=== PATIENT | male | born 1955 | race Caucasian/White ===

== ENCOUNTER 2021-08-08 09:40 | Emergency (ER) | payer OTHER, BC ==
[2021-08-08 09:45] VITALS: RESP 18
--- NOTE | 2021-08-08 10:32 | XR ---
EXAMINATION TYPE: XR ankle complete RT DATE OF EXAM: 08/08/2021 CLINICAL HISTORY: Pain. TECHNIQUE: Frontal, lateral and oblique images of the right ankle are obtained. COMPARISON: None. FINDINGS: There is no acute fracture/dislocation evident in the right ankle. The ankle mortise appe ars within normal limits. The overlying soft tissue appears unremarkable. IMPRESSION: Unremarkable study.
--- NOTE | 2021-08-08 10:44 | ED ---
Lower Extremity Injury HPI - General Chief Complaint: Extremity Injury, Lower Stated Complaint: Rt foot pain Time Seen by Provider: 08/08/21 09:47 Source: patient, RN notes reviewed Mode of arrival: ambulatory Limitations: no limitations - History of Present Illness Initial Comments: Patient is a 65-year-old male that presents to the emergency department complaining of right ankle pain. He notes that he does have a history of gout and does take his medication as prescribed. Patient notes that he is unsure of if he might have mildly injured his ankle over the past several days. He notes that he woke up this morning he was minimally swollen. Patient otherwise well- appearing in no apparent distress. He denied any weakness numbness tingling sev ere pain. He denied chest pain first breath headache nausea vomiting diarrhea constipation fever fatigue chills. - Related Data Allergies Allergy/AdvReac Type Severity Reaction Status Date / Time No Known Allergies Allergy Verified 08/08/21 09:45 Review of Systems ROS Statement: Those systems with pertinent positive or pertinent negative responses have been documented in the HPI. ROS Other: All systems not noted in ROS Statement are negative. Past Medical History Additional Past Medical History / Comment(s): gout History of Any Multi-Drug Resistant Organisms: None Reported Past Surgical History: No Surgical Hx Reported Past Psychological History: No Psychological Hx Reported Smoking Status: Former smoker Past Alcohol Use History: Occasional Past Drug Use History: None Reported General Exam Limitations: no limitations General appearance: alert, in no apparent distress Head exam: Present: atraumatic, normocephalic, normal inspection Eye exam: Present: normal appearance, PERRL, EOMI. Absent: scleral icterus, conjunctival injection, periorbital swelling ENT exam: Present: normal exam, mucous membranes moist Respiratory exam: Present: normal lung sounds bilaterally. Absent: respiratory distress, wheezes, rales, rhonchi, stridor Cardiovascular Exam: Present: regular rate, normal rhythm, normal heart sounds. Absent: systolic murmur, diastolic murmur, rubs, gallop, clicks Extremities exam: Present: normal inspection, full ROM, normal capillary refill. Absent: tenderness, pedal edema, joint swelling, calf tenderness Right Ankle exam: Present: normal inspection, full ROM, tenderness (Anterior aspect), swelling (Minimal) Neurological exam: Present: alert, oriented X3 Psychiatric exam: Present: normal affect, normal mood Skin exam: Present: warm, dry, intact, normal color. Absent: rash Course Vital Signs 08/08/21 09:41 Temperature 97.9 F Pulse Rate 77 Respiratory 18 Rate Blood Pressure 156/91 O2 Sat by Pulse 99 Oximetry Medical Decision Making - Medical Decision Making 65-year-old male complaining of right ankle pain, unknown history of injury or trauma. X-ray ordered. X-ray shows no acute fractures or dislocations. Patient most likely has a mild ankle sprain. Patient was informed to take his indomethacin gout medication just in case it is an early flareup. Case discussed with Dr. Becerra, patient discharge home. - Radiology Data Radiology results: report reviewed, image reviewed X-ray right ankle: Unremarkable study. Disposition Clinical Impression: Right ankle injury Disposition: HOME SELF-CARE Condition: Stable Instructions (If sedation given, give patient instructions): Ankle Sprain (ED) Additional Instructions: Please return to the Emergency Department if symptoms worsen or any other concerns. Follow-up with primary care 1-2 days. Continue taking all medications as prescribed. Is patient prescribed a controlled substance at d/c from ED?: No Referrals: Xiang Dickey MD [Primary Care Provider] - 1-2 days Time of Disposition: 10:44
[2021-08-08 11:20] VITALS: BP 138/70; PULSE 78; TEMP 98.1
== END 2021-08-08 11:08 | disposition home or self-care (01) ==
LOC: EC 09:40
DX: S99.911A Unspecified injury of right ankle, initial encounter (principal); Z87.891 Personal history of nicotine dependence; X58.XXXA Exposure to other specified factors, initial encounter
CPT/HCPCS: 99283

== ENCOUNTER → 2021-08-11 | Outpatient (CLI) | payer OTHER, BC ==
--- NOTE | 2021-08-11 08:51 | CTL ---
Addendum: Small diaphragmatic hernia posterior left aspect containing fat on sagittal image 101
== END | disposition home or self-care (01) ==
LOC: RADCTMAIN 06:49
PROVIDERS: ATTEND Internal Medicine
DX: Z12.2 Encounter for screening for malignant neoplasm of respiratory organs (principal); Z87.891 Personal history of nicotine dependence; K44.9 Diaphragmatic hernia without obstruction or gangrene
CPT/HCPCS: 71271

== ENCOUNTER → 2021-08-18 | Outpatient (CLI) | payer OTHER, BC ==
[2021-08-18 10:58] LABS: Basophils # (A) 0.07 X 10*3/uL (0.00-0.10); Basophils % (A) 1.1 %; Eosinophils # (A) 0.21 X 10*3/uL (0.04-0.35); Eosinophils % (A) 3.4 %; HCT 46.8 % (39.6-50.0); HGB 14.8 g/dL (13.0-17.0); Lymphocytes # (A) 1.63 X 10*3/uL (0.90-5.00); Lymphocytes % (A) 26.5 %; MCH 29.4 pg (27.0-32.0); MCHC 31.6 g/dL (32.0-37.0); Mean Platelet Volume 12.4 fL (9.5-12.2); Monocytes # (A) 0.82 X 10*3/uL (0.20-1.00); Monocytes % (A) 13.3 %; Neutrophils % (A) 55.4 %; Platelet Count 185 X 10*3/uL (140-440); RBC 5.03 X 10*6/uL (4.40-5.60); RDW 12.8 % (11.5-14.5); WBC 6.15 X 10*3/uL (4.50-10.00)
[2021-08-18 11:59] LABS: ALT 10 U/L (10-49); AST 19 U/L (14-35); African American GFR (CKD) 96.7 (60.0-200.0); Albumin 4.3 g/dL (3.8-4.9); Albumin/Globulin Ratio 1.56 (1.60-3.17); Alkaline Phosphatase 70 U/L (41-126); BUN/Creat Ratio 11.17 Ratio (12.00-20.00); Blood Urea Nitrogen 10.7 mg/dL (9.0-27.0); Calcium 9.4 mg/dL (8.7-10.3); Carbon Dioxide 25.4 mmol/L (20.0-27.5); Chloride 105 mmol/L (96-109); Chol/HDL Ratio 3.01 Ratio; Globulin 2.7 g/dL (1.6-3.3); Glucose 87 mg/dL (70-110); LDL Cholesterol,Calculated 80.3 mg/dL (0.0-131.0); Non-African American GFR(CKD) 83.4 (60.0-200.0); Potassium 4.1 mmol/L (3.5-5.5); Sodium 142 mmol/L (135-145); Uric Acid 7.5 mg/dL (3.7-8.7)
== END | disposition home or self-care (01) ==
LOC: LABWHC1 07:09
PROVIDERS: ATTEND Internal Medicine
DX: I10 Essential (primary) hypertension (principal); Z12.5 Encounter for screening for malignant neoplasm of prostate; Q61.9 Cystic kidney disease, unspecified
CPT/HCPCS: 80061; 80053; 84443; 84550; 85025; 36415; G0103

== ENCOUNTER → 2021-09-02 | Outpatient (CLI) | payer OTHER, BC ==
--- NOTE | 2021-09-02 13:20 | US ---
EXAMINATION TYPE: US kidneys/renal and bladder DATE OF EXAM: 09/02/2021 COMPARISON: NONE CLINICAL HISTORY: 65-year-old male Q61.9 Cystic kidney disease. Patient states left kidney is nonfunc tional from TECHNIQUE: Multiple sonographic images of the kidneys and bladder are obtained. FINDINGS: EXAM MEASUREMENTS: Right Kidney: 14.9 x 6.3 x 5.9 cm Left Kidney: 13.1 x 5.3 x 6.5 cm Estimated Right Kidney: A couple small cysts are present, largest at the upper pole measuring 1.3 cm. Echogenic focus at the upper pole measures 5 mm. No hydronephrosis. Left Kidney: Normal kidney not seen due to multiple cysts seen. Largest lower pole = 11.5 x 8.1 x 7. 8 cm Bladder: Distended, anechoic IMPRESSION: 1. Right kidney: No hydronephrosis. A couple small cysts measuring up to 1.3 cm and a nonobstructive 5 mm right renal calculus. 2. Left kidney: Diffusely replaced by multiple cysts, largest measuring 11.5 cm.
== END | disposition home or self-care (01) ==
LOC: RADUSWWP 08:48
PROVIDERS: ATTEND Internal Medicine
DX: Q61.9 Cystic kidney disease, unspecified (principal)
CPT/HCPCS: 76770

== ENCOUNTER → 2021-09-02 | Outpatient (CLI) | payer OTHER, BC ==
--- NOTE | 2021-09-02 13:25 | XR ---
EXAMINATION TYPE: XR hand complete LT DATE OF EXAM: 09/02/2021 COMPARISON: NONE HISTORY: 65-year-old male S62.92XA, left hand fracture, redness and swelling to the metacarpals for 5 days. TECHNIQUE: 3 views FINDINGS: Scattered mild degenerative spurring throughout the IP joints of the fingers and also at the first CM C joint. Small corticated bone fragments, possible ossicles measuring up to 6 mm interposed at the ul nocarpal joint. Pronounced dorsal soft tissue swelling. No acute fracture, subluxation or dislocation seen. IMPRESSION: Pronounced dorsal soft tissue swelling. Scattered mild osteoarthritic changes. No acute osseous abnor mality seen.
== END | disposition home or self-care (01) ==
LOC: RADXRMAIN 09:26
PROVIDERS: ATTEND Internal Medicine
DX: S62.92XA Unspecified fracture of left hand, initial encounter for closed fracture (principal); X58.XXXA Exposure to other specified factors, initial encounter

== ENCOUNTER 2021-12-17 08:40 | Emergency (ER) | payer MEDICARE, BC ==
[2021-12-17 08:59] VITALS: RESP 18; TEMP 97
[2021-12-17] MEDS ORDERED: SODIUM CHLORIDE 0.9% 500 ML 500 ML IV STA (09:11)
--- NOTE | 2021-12-17 09:24 | ED ---
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 He denies any chest pain, dizziness or shortness of breath. Patient does have a history of A. fib, hypertension and one functional kidney. Severity scale (1-10): 0 Associated Symptoms: denies other symptoms - Related Data Home Medications Medication Instructions Recorded Confirmed Baclofen [Lioresal] 10 mg PO BID PRN 12/17/21 12/17/21 Metoprolol Succinate [Toprol XL] 50 mg PO DAILY 12/17/21 12/17/21 Rivaroxaban [Xarelto] 20 mg PO DAILY 12/17/21 12/17/21 amLODIPine BESYLATE/BENAZEPRIL 1 cap PO DAILY 12/17/21 12/17/21 [Lotrel 10-20 MG] traMADol HCL 50 mg PO BID PRN 12/17/21 12/17/21 Allergies Allergy/AdvReac Type Severity Reaction Status Date / Time No Known Allergies Allergy Verified 12/17/21 09:54 Review of Systems ROS Statement: Those systems with pertinent positive or pertinent negative responses have been documented in the HPI. ROS Other: All systems not noted in ROS Statement are negative. Past Medical History Past Medical History: Atrial Fibrillation, Hypertension, Renal Disease Additional Past Medical History / Comment(s): gout History of Any Multi-Drug Resistant Organisms: None Reported Past Surgical History: No Surgical Hx Reported, Orthopedic Surgery Past Psychological History: No Psychological Hx Reported Smoking Status: Former smoker Past Alcohol Use History: Occasional Past Drug Use History: None Reported General Exam Limitations: no limitations General appearance: alert, in no apparent distress Head exam: Present: atraumatic, normocephalic, normal inspection Eye exam: Present: normal appearance. Absent: scleral icterus, conjunctival injection ENT exam: Present: normal exam, normal oropharynx, mucous membranes moist Respiratory exam: Present: normal lung sounds bilaterally. Absent: respiratory distress, wheezes, rales, rhonchi, stridor, chest wall tenderness, accessory muscle use, decreased breath sounds Cardiovascular Exam: Present: regular rate, irregular rhythm. Absent: JVD GI/Abdominal exam: Present: soft. Absent: distended, tenderness Extremities exam: Absent: pedal edema Neurological exam: Present: alert, oriented X3, normal gait Psychiatric exam: Present: normal affect, normal mood Skin exam: Present: warm, dry, normal color. Absent: cyanosis, diaphoretic Course Vital Signs 12/17/21 12/17/21 12/17/21 08:54 11:02 11:03 Temperature 97 F L Pulse Rate 82 73 75 Respiratory 18 18 Rate Blood Pressure 164/90 162/87 O2 Sat by Pulse 100 98 Oximetry 12/17/21 12/17/21 11:15 12:20 Temperature Pulse Rate 90 88 Respiratory 18 Rate Blood Pressure 134/76 O2 Sat by Pulse 98 Oximetry - Reevaluation(s) Reevaluation #1: 12/17/21 11:39 I did speak with Dr[address] Barnett who recommended patient be given 10 g of Lokelma and stop Lotrel and have labs repeated tomorrow morning. Patient does not need to be admitted. Time: 11:39 EKG Findings - EKG Results: EKG shows: atrial fibrillation (Atrial fibrillation with a ventricular rate of 70, QRS 0.116, QTC 0.444; peak T waves are noted.) Medical Decision Making - Medical Decision Making Patient sent by Dr. Barnett, nephrology for potassium level of 6.6. Today his potassium is 6.0. He was given medications in the emergency room and Dr. Barnett was notified. She recommended patient also be given Lokelma and can be discharged home and have repeat labs drawn tomorrow morning. Patient has been urinating in the emergency room. He was directed to follow-up with Dr Barnett in the office next week. Strict return parameters were discussed with the patient to return to the emergency room with any new or concerning symptoms including dizziness, weakness, or chest pain. Patient is agreeable to this plan of care. Case discussed with Dr. Suggs. Discharged with stable vital signs. - Lab Data Result diagrams: 12/17/21 09:30 12/17/21 09:30 Lab Results 12/17/21 12/17/21 12/17/21 Range/Units 09:30 09:30 09:30 WBC 9.0 (3.8-10.6) k/uL RBC 5.48 (4.30-5.90) m/uL Hgb 17.3 (13.0-17.5) gm/dL Hct 50.7 (39.0-53.0) % MCV 92.5 (80.0-100.0) fL MCH 31.5 (25.0-35.0) pg MCHC 34.0 (31.0-37.0) g/dL RDW 13.3 (11.5-15.5) % Plt Count 205 (150-450) k/uL MPV 8.5 Neutrophils % 74 % Lymphocytes % 16 % Monocytes % 5 % Eosinophils % 1 % Basophils % 1 % Neutrophils # 6.7 (1.3-7.7) k/uL Lymphocytes # 1.5 (1.0-4.8) k/uL Monocytes # 0.5 (0-1.0) k/uL Eosinophils # 0.1 (0-0.7) k/uL Basophils # 0.1 (0-0.2) k/uL PT 14.2 H (9.0-12.0) sec INR 1.4 H (<1.2) APTT 38.6 H (22.0-30.0) sec Sodium 135 L (137-145) mmol/L Potassium 6.0 H (3.5-5.1) mmol/L Chloride 98 (98-107) mmol/L Carbon Dioxide 20 L (22-30) mmol/L Anion Gap 17 mmol/L BUN 16 (9-20) mg/dL Creatinine 1.13 (0.66-1.25) mg/dL Est GFR (CKD-EPI)AfAm 79 (>60 ml/min/1.73 sqM) Est GFR (CKD-EPI)NonAf 68 (>60 ml/min/1.73 sqM) Glucose 88 (74-99) mg/dL Calcium 9.7 (8.4-10.2) mg/dL Magnesium 2.1 (1.6-2.3) mg/dL Total Bilirubin 1.8 H (0.2-1.3) mg/dL AST 34 (17-59) U/L ALT 17 (4-49) U/L Alkaline Phosphatase 80 (38-126) U/L Troponin I (0.000-0.034) ng/mL Total Protein 8.9 H (6.3-8.2) g/dL Albumin 5.0 (3.5-5.0) g/dL 12/17/21 Range/Units 09:30 WBC (3.8-10.6) k/uL RBC (4.30-5.90) m/uL Hgb (13.0-17.5) gm/dL Hct (39.0-53.0) % MCV (80.0-100.0) fL MCH (25.0-35.0) pg MCHC (31.0-37.0) g/dL RDW (11.5-15.5) % Plt Count (150-450) k/uL MPV Neutrophils % % Lymphocytes % % Monocytes % % Eosinophils % % Basophils % % Neutrophils # (1.3-7.7) k/uL Lymphocytes # (1.0-4.8) k/uL Monocytes # (0-1.0) k/uL Eosinophils # (0-0.7) k/uL Basophils # (0-0.2) k/uL PT (9.0-12.0) sec INR (<1.2) APTT (22.0-30.0) sec Sodium (137-145) mmol/L Potassium (3.5-5.1) mmol/L Chloride (98-107) mmol/L Carbon Dioxide (22-30) mmol/L Anion Gap mmol/L BUN (9-20) mg/dL Creatinine (0.66-1.25) mg/dL Est GFR (CKD-EPI)AfAm (>60 ml/min/1.73 sqM) Est GFR (CKD-EPI)NonAf (>60 ml/min/1.73 sqM) Glucose (74-99) mg/dL Calcium (8.4-10.2) mg/dL Magnesium (1.6-2.3) mg/dL Total Bilirubin (0.2-1.3) mg/dL AST (17-59) U/L ALT (4-49) U/L Alkaline Phosphatase (38-126) U/L Troponin I <0.012 (0.000-0.034) ng/mL Total Protein (6.3-8.2) g/dL Albumin (3.5-5.0) g/dL Disposition Clinical Impression: Hyperkalemia Disposition: HOME SELF-CARE Condition: Good Instructions (If sedation given, give patient instructions): Hyperkalemia (ED) Additional Instructions: Stop taking your Lotrel (amlodipine/benazepril). Have labs redrawn tomorrow, Tuesday12/18/21. Follow-up with Dr. Barnett in the office next week. Return to the emergency room with any new or concerning symptoms including chest pain, weakness or dizziness. Is patient prescribed a controlled substance at d/c from ED?: No Referrals: Xiang Dickey MD [Primary Care Provider] - 1-2 days Bianca Barnett MD [STAFF PHYSICIAN] - 1-2 days Time of Disposition: 11:55 Decision Date: 12/17/21 Decision Time: 10:58
[2021-12-17] MEDS ORDERED: DEXTROSE 50% SYRINGE 50 ML IVP ONE (09:43)
[2021-12-17] MEDS ORDERED: INSULIN REGULAR 100 UNIT/ML VIAL (IV) IV ONE (09:43)
[2021-12-17] MEDS ORDERED: ALBUTEROL NEB (CONC) 2.5 MG/0.5 ML INHALATION ONE (09:43)
[2021-12-17] MEDS ORDERED: CALCIUM GLUCONATE IN NACL 1 GM in SALINE 1 100ML.BAG IVPB ONE (09:43)
[2021-12-17 09:48] LABS: Basophils # (A) 0.1 k/uL (0-0.2); Basophils % (A) 1 %; Eosinophils # (A) 0.1 k/uL (0-0.7); Eosinophils % (A) 1 %; HCT 50.7 % (39.0-53.0); HGB 17.3 gm/dL (13.0-17.5); Lymphocytes # (A) 1.5 k/uL (1.0-4.8); Lymphocytes % (A) 16 %; MCH 31.5 pg (25.0-35.0); MCV 92.5 fL (80.0-100.0); Mean Platelet Volume 8.5; Monocytes # (A) 0.5 k/uL (0-1.0); Monocytes % (A) 5 %; Neutrophils # (A) 6.7 k/uL (1.3-7.7); Neutrophils % (A) 74 %; Platelet Count 205 k/uL (150-450); RBC 5.48 m/uL (4.30-5.90); RDW 13.3 % (11.5-15.5)
[2021-12-17 10:03] LABS: INR 1.4 (<1.2); Partial Thromboplastin Time 38.6 sec (22.0-30.0); Prothrombin Time 14.2 sec (9.0-12.0)
[2021-12-17 10:38] LABS: Calcium 9.7 mg/dL (8.4-10.2); Magnesium 2.1 mg/dL (1.6-2.3); Total Bilirubin 1.8 mg/dL (0.2-1.3); Total Protein 8.9 g/dL (6.3-8.2)
[2021-12-17] MEDS ORDERED: NALOXONE 0.4 MG/ML 1 ML VIAL IV PRN (11:01)
[2021-12-17] MEDS ORDERED: ACETAMINOPHEN TAB 325 MG TAB PO PRN (11:01)
--- NOTE | 2021-12-17 11:18 | P.HPIM ---
History of Present Illness Chief Complaint: instructed by my industrial radiographer Patient is a 66-year-old male with a past medical history significant for atrial fibrillation on anticoagulation, essential hypertension that presents to the hospital after being referred by his industrial radiographer for hyperkalemia. His potassium was found to be 6.6 in the emergency department currently 6.0 hyperkalemia cocktail was administered. EKG was reviewed and also have T-wave changes and IV calcium gluconate was administered. Patient was admitted for close monitoring until he gets evaluated by his industrial radiographer. He denies any symptomatology clinic chest pain, shortness of breath or palpitations. He is slightly frustrated with the admission. Past Medical History Past Medical History: Atrial Fibrillation, Hypertension, Renal Disease Additional Past Medical History / Comment(s): gout History of Any Multi-Drug Resistant Organisms: None Reported Past Surgical History: No Surgical Hx Reported, Orthopedic Surgery Past Psychological History: No Psychological Hx Reported Smoking Status: Former smoker Past Alcohol Use History: Occasional Past Drug Use History: None Reported Medications and Allergies Home Medications Medication Instructions Recorded Confirmed Type Baclofen [Lioresal] 10 mg PO BID PRN 12/17/21 12/17/21 History Metoprolol Succinate [Toprol XL] 50 mg PO DAILY 12/17/21 12/17/21 History Rivaroxaban [Xarelto] 20 mg PO DAILY 12/17/21 12/17/21 History amLODIPine BESYLATE/BENAZEPRIL 1 cap PO DAILY 12/17/21 12/17/21 History [Lotrel 10-20 MG] traMADol HCL 50 mg PO BID PRN 12/17/21 12/17/21 History Allergies Allergy/AdvReac Type Severity Reaction Status Date / Time No Known Allergies Allergy Verified 12/17/21 09:54 Physical Exam Vitals: Vital Signs Temp Pulse Resp BP Pulse Ox 12/17/21 11:03 75 12/17/21 11:02 73 18 162/87 98 12/17/21 08:54 97 F L 82 18 164/90 100 Intake and Output 12/16/21 12/17/21 12/17/21 22:59 06:59 14:59 Other: Weight 83.461 kg Gen. patient is awake alert oriented 3 slightly frustrated Cardiac normal S1/S2 irregularly irregular Respiratory no wheezing or rhonchi appreciated Abdomen soft, nontender Extremity no pitting edema Results CBC & Chem 7: 12/17/21 09:30 12/17/21 09:30 Labs: Abnormal Lab Results - Last 24 Hours (Table) 12/17/21 12/17/21 Range/Units 09:30 09:30 PT 14.2 H (9.0-12.0) sec INR 1.4 H (<1.2) APTT 38.6 H (22.0-30.0) sec Sodium 135 L (137-145) mmol/L Potassium 6.0 H (3.5-5.1) mmol/L Carbon Dioxide 20 L (22-30) mmol/L Total Bilirubin 1.8 H (0.2-1.3) mg/dL Total Protein 8.9 H (6.3-8.2) g/dL Assessment and Plan Assessment: Assessment: #1 hyperkalemia #2 atrial fibrillation on anticoagulation #3 essential hypertension Plan: -Admit to medicine for close monitoring -Repeat potassium and 1 hour after hyperkalemia cocktail administered in the ER -Repeat EKG- nephrology consulted. -Current EKG reviewed showing peaked T waves, calcium gluconate administered -Due to prophylaxis heparin
--- NOTE | 2021-12-17 11:19 | XR ---
EXAMINATION TYPE: XR chest 2V DATE OF EXAM: 12/17/2021 COMPARISON: CT 08/11/2021 HISTORY: S pain TECHNIQUE: Frontal and lateral views of the chest are obtained. FINDINGS: There is no focal air space opacity, pleural effusion, or pneumothorax seen. The cardiac silhouette size is within normal limits. Calcified nodule present in the left lower lobe noted incid entally. Prominent lung volumes are consistent with underlying COPD. There are coronary artery calcif ications present. Aorta is dense. There are overlying leads. There is a spinal curvature. The osseous structures are intact. IMPRESSION: No acute cardiopulmonary process.
[2021-12-17] MEDS ORDERED: SODIUM ZIRCONIUM CYCLOSILICATE 10 GM PACKET PO ONE (12:15)
[2021-12-17 12:23] VITALS: BP 134/76; PULSE 88
[2021-12-18] MEDS ORDERED: NON FORMULARY DRUG (Amlodipine Besylate/Benazepril [Lotrel 10-20 Mg] 1 EACH Capsule) PO SCH (09:00)
[2021-12-18] MEDS ORDERED: METOPROLOL SUCCINATE (ER) 50 MG TAB.ER.24H PO SCH (09:00)
[2021-12-18] MEDS ORDERED: RIVAROXABAN 20 MG TAB PO SCH (09:00)
== END 2021-12-17 12:21 | disposition home or self-care (01) ==
LOC: EC 08:40
DX: E87.5 Hyperkalemia (principal); I10 Essential (primary) hypertension; Z87.891 Personal history of nicotine dependence
CPT/HCPCS: 99284; 96374; 96375; 36415; 94640; 93005; 80053; 83735; 84484; 85025; 85610; 85730; 71046; J0610

== ENCOUNTER → 2022-12-08 | Outpatient (CLI) | payer MEDICARE, BC ==
--- NOTE | 2022-12-08 08:53 | CTL ---
EXAMINATION TYPE: CT Low Dose Lung DATE OF EXAM: 12/08/2022 7:49 AM CLINICAL INDICATION:Male, 67 years old with history of Z87.891 PERSONAL HISTORY OF NICOTINE DEPENDENC E; Personal history of nicotine dependence , history of tobacco use. COMPARISON: 08/11/2021 TECHNIQUE: Multiple axial non-contrast scans were obtained from approximately the lung apices through the upper abdomen. Coronal and sagittal reformatted images were obtained. Low dose technique was uti lized. CT DLP: 112.9 mGycm, Automated exposure control for dose reduction was used. CT Contrast: Contrast used: None Oral contrast used: None FINDINGS: ======== Lack of intravenous contrast and low dose technique limits the evaluation of the vascular and soft ti ssue structures. LUNGS: No evidence of pulmonary fibrosis. No evidence of focal consolidation, pneumothorax or pleural effusion. Fat-containing posterior right aqueduct hernia. Nodules: RUL: None. RML: None. RLL: None. NAVDEEP: None. LLL: Left lower lobe calcified centrally granuloma. Additional calcified granuloma series 8. AIRWAY: Patent and unremarkable. HEART: The heart is mildly enlarged for size. There is mild coronary artery calcifications. Aortic va lve calcifications are present. MEDIASTINUM: No gross evidence of adenopathy. VASCULATURE: No aortic aneurysm. Atherosclerosis of the arterial vasculature. MUSCULOSKELETAL: Mild disc degeneration changes are present throughout the thoracolumbar spine. SOFT TISSUES/LYMPH NODES: Mild gynecomastia changes. LOWER NECK: No significant findings. UPPER ABDOMEN: Left renal cystic changes similar prior. IMPRESSION: 1. No clinically significant pulmonary nodules. CT LUNG RAD AND CT CHEST RECOMMENDATION: Lung-Rad 2 Benign Appearance or Behavior: Continue annual sc reening with LDCT in 12 months. S Modifier (other clinically significant findings): None Recommend smoking cessation (if current smoker), or continuation of smoking cessation (if prior smoke r). Annual screening for lung cancer with low-dose computed tomography is recommended in adults ages 55 to 77 years who have a 30 pack-year smoking history and currently smoke or have quit within the pa st 15 years. Screening should be discontinued once a person has not smoked for 15 years or develops a health problem that substantially limits life expectancy or the ability or willingness to have curat clare lung surgery. Lung rads 2021 [email or web address]
== END | disposition home or self-care (01) ==
LOC: RADCTMAIN 07:30
PROVIDERS: ATTEND Internal Medicine
DX: Z12.2 Encounter for screening for malignant neoplasm of respiratory organs (principal); Z87.891 Personal history of nicotine dependence
CPT/HCPCS: 71271

== ENCOUNTER → 2022-12-15 | Outpatient (CLI) | payer MEDICARE, BC ==
--- NOTE | 2022-12-15 11:06 | MR ---
EXAMINATION TYPE: MR brain wo/w con DATE OF EXAM: 12/15/2022 COMPARISON: None HISTORY: Family hx stroke, Headache TECHNIQUE: Multiplanar, multisequence images of the brain and brainstem is performed without and with IV contras t, utilizing 9 mL intravenous Gadavist . FINDINGS: Diffusion weighted images demonstrate no evidence of a recent infarct or other diffusion ab normality. There is no extra-axial fluid collection or significant white matter signal abnormality. The ventricular system and cisternal spaces are consistent with mild degenerative change and there a re numerous focal areas of abnormal signal seen scattered throughout the white matter of bilateral ce rebral hemisphere.. The brain volume is age appropriate. Midline structures demonstrate normal morphology. The craniocervical junction appears within normal limits. Post contrast images demonstrate no abnormal enhancement. The dural venous sinuses appear pa tent. Changes of chronic sinusitis and the globes are intact. IMPRESSION: 1. Mild degenerative and mild to moderate nonspecific white matter changes most typical of remote whi te matter ischemia
== END | disposition home or self-care (01) ==
LOC: RADMRIMAIN 09:29
PROVIDERS: ATTEND Internal Medicine
DX: G93.89 Other specified disorders of brain (principal); R90.82 White matter disease, unspecified; R51.9 Headache, unspecified
CPT/HCPCS: 70553; A9585

== ENCOUNTER → 2022-12-24 | Outpatient (CLI) | payer MEDICARE, BC ==
--- NOTE | 2022-12-24 09:57 | US ---
EXAMINATION TYPE: US venous doppler duplex LE RT DATE OF EXAM: 12/24/2022 9:18 AM COMPARISON: NONE CLINICAL HISTORY: M79.89 RT LEG SWELLING. right leg edema. patient on blood thinner, AFIB SIDE PERFORMED: right TECHNIQUE: The lower extremity deep venous system is examined utilizing real time linear array sonog leida with graded compression, doppler sonography and color-flow sonography. VESSELS IMAGED: Common Femoral Vein Deep Femoral Vein Greater Saphenous Vein * Femoral Vein Popliteal Vein Small Saphenous Vein * Proximal Calf Veins (* superficial vessels) Right Leg: No evidence of DVT IMPRESSION: Grayscale, color doppler, spectral doppler imaging performed of the deep veins of the lo wer extremities. There is normal flow, compressibility, vascular waveforms.
== END | disposition home or self-care (01) ==
LOC: RADUSWWP 09:16
PROVIDERS: ATTEND Internal Medicine
DX: I48.91 Unspecified atrial fibrillation (principal); M79.89 Other specified soft tissue disorders; R22.41 Localized swelling, mass and lump, right lower limb

== ENCOUNTER → 2023-02-01 | Outpatient (CLI) | payer MEDICARE, BC ==
--- NOTE | 2023-02-01 14:25 | P.SLEEP ---
History of Present Illness H&P Date: 02/01/23 This is a very pleasant 67-year-old male patient was coming to see me regarding possibility of him having obstructive sleep apnea. The patient is . He is in a relationship with another person at this point in time and his partner has a medical background and he has been noted to have snoring and occasional apneas at nighttime. The patient is known to have chronic atrial fibrillation and has hypertension and chronic kidney disease. He is an ex-smoker. He does not drink alcohol for the time being. He has loud snoring. He wakes up frequently in the middle of the night for urination. At times, he wakes up with dry mouth. Denies waking up choking or gasping for air. His sleep is obviously fragmented. He has no difficulties initiating sleep. He is having issues with sleep maintenance. He goes to bed around 9 PM, wakes up 3 AM in the morning, is averaging around 5 or 6 hours of sleep. His current Elsie score is at 1. He is not having any major hypersomnia or sleepiness during the day. No nighttime chest pain or shortness of breath. No nighttime palpitations. No headaches in the morning. He has been losing weight and over the past 10 years, the patient has lost approximately 20 pounds. His BP is under good control. He remains on long-term anticoagulation was also regarding his atrial fibrillation. No nighttime seizures. No grinding of the teeth. No sleepwalking. No restlessness and his lower extremities. No nighttime heartburn. No issues with memory or concentration during the day. No anxiety. No depression. Review of Systems Constitutional: Reports weight loss Eyes: denies as per HPI, denies blurred vision, denies bulging eye, denies decreased vision, denies diplopia, denies discharge, denies dry eye, denies irritation, denies itching, denies pain, denies photophobia, denies loss of peripheral vision, denies loss of vision, denies tunnel vision/blind spots Ears: deny: decreased hearing, ear discharge, earache, tinnitus Breasts: absent: as per HPI, gynecomastia Cardiovascular: Reports as per HPI, Reports irregular heart beat Respiratory: Reports as per HPI Genitourinary: Reports as per HPI Musculoskeletal: Reports as per HPI Musculoskeletal: absent: ankle pain, ankle stiffness, ankle swelling Integumentary: Reports as per HPI Neurological: Reports as per HPI Psychiatric: Reports as per HPI Endocrine: Reports as per HPI Hematologic/Lymphatic: Reports as per HPI Allergic/Immunologic: Reports as per HPI Past Medical History Past Medical History: Atrial Fibrillation, Hypertension, Renal Disease (Chronic kidney disease) Additional Past Medical History / Comment(s): gout History of Any Multi-Drug Resistant Organisms: None Reported Past Surgical History: No Surgical Hx Reported, Orthopedic Surgery (lumbar laminectomy) Past Psychological History: No Psychological Hx Reported Smoking Status: Former smoker (Patient quit smoking in 1999 and he quit smoking approximately 13 years ago. Used to smoke 1-2 packs of cigarettes prior to that.) Past Alcohol Use History: Occasional Past Drug Use History: None Reported Medications and Allergies Home Medications Medication Instructions Recorded Confirmed Type Baclofen [Lioresal] 10 mg PO BID PRN 12/17/21 12/17/21 History Metoprolol Succinate [Toprol XL] 50 mg PO DAILY 12/17/21 12/17/21 History Rivaroxaban [Xarelto] 20 mg PO DAILY 12/17/21 12/17/21 History amLODIPine BESYLATE/BENAZEPRIL 1 cap PO DAILY 12/17/21 12/17/21 History [Lotrel 10-20 MG] traMADol HCL 50 mg PO BID PRN 12/17/21 12/17/21 History Allergies Allergy/AdvReac Type Severity Reaction Status Date / Time No Known Allergies Allergy Verified 12/17/21 09:54 Physical Exam BP is 148/78, pulse is 70, respirations 16, temperature 97.1 and a pulse ox of 98% on room air oxygen. Height is 5 feet and 10 inches, weight is 203 pounds, body mass index is 29, Elsie score is at 1 and the side of the neck is 15.5 inches. The patient appeared well nourished and normally developed. Vital signs as documented. Head exam is unremarkable. No scleral icterus or corneal arcus noted. Neck is without jugular venous distension, thyromegaly, or carotid bruits. Carotid upstrokes are brisk bilaterally. Limited cognitive posterior oropharynx with a Mallampati class III. Lungs are clear to auscultation and percussion. Cardiac exam reveals the PMI to be normally sized and situated. Rhythm is irregular consistent with atrial fibrillation. First and second heart sounds normal. No murmurs, rubs or gallops. Abdominal exam reveals normal bowel sounds, no masses, no organomegaly and no aortic enlargement. Extremities are nonedematous and both femoral and pedal pulses are normal.Examination of the skin revealed no evidence of significant rashes, suspicious appearing nevi or other concerning lesions.Neurologically, the patient is awake and alert and the patient does not have any focal neurological deficit. Cranial nerves are essentially intact. Assessment and Plan Plan: Loud snoring and occasional apneas. Nevertheless, no significant daytime hypersomnia or sleepiness. The patient's aport score is at 1 Chronic atrial fibrillation Hypertension Chronic kidney disease Ex-smoker Plan Proceed with a home sleep study to evaluate this patient for sleep apnea The patient has a fragmented sleep. There may be potentially an underlying sleep apnea disorder. Nevertheless, overall functionality during the day of the well-preserved and the patient does not have any significant hypersomnia or sleepiness. Based on his sleep fragmentation, snoring, and comorbid conditions include atrial fibrillation, a home sleep study will be done to evaluate this patient for MIRANDA. Maintain regular sleep hygiene measures Maintain aggressive schedule Continue efforts to lose weight We'll continue to follow Sleep Note - Sleep Note Sleep Note: Temperature: Pulse Rate: Respiratory Rate: Blood Pressure: SpO2: Height: Weight: BMI: Neck Circumference:
== END ==
LOC: SLEEP 13:34
PROVIDERS: ATTEND Internal Medicine Critical Care Medicine
DX: G47.33 Obstructive sleep apnea (adult) (pediatric) (principal); I48.91 Unspecified atrial fibrillation; I10 Essential (primary) hypertension; N18.9 Chronic kidney disease, unspecified; Z87.891 Personal history of nicotine dependence
CPT/HCPCS: 99211

== ENCOUNTER 2023-02-10 07:13 | Emergency (ER) | payer MEDICARE, BC ==
[2023-02-10 07:26] VITALS: RESP 16; TEMP 97
[2023-02-10] MEDS ORDERED: LIDOCAINE 5% PATCH TOPICAL STA (07:38)
[2023-02-10] MEDS ORDERED: CYCLOBENZAPRINE 5 MG TAB PO STA (07:41)
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
--- NOTE | 2023-02-10 08:08 | XR ---
EXAMINATION TYPE: XR chest 2V DATE OF EXAM: 02/10/2023 7:53 AM COMPARISON: Chest radiographs from 12/17/2021. TECHNIQUE: XR chest 2V Frontal and lateral views of the chest. CLINICAL INDICATION:Male, 67 years old with history of right inferior ant rib pain; FINDINGS: Lungs/Pleura: There is no evidence of pleural effusion, focal consolidation, or pneumothorax. Pulmonary vascularity: Unremarkable. Heart/mediastinum: Cardiomediastinal silhouette is unremarkable. Musculoskeletal: No acute osseous pathology. No evidence of right inferior anterior rib fracture. Delmy luation slightly limited given overlapping soft tissues of the lower chest. IMPRESSION: No evidence of rib fracture, if there remains concern consider CT. No acute cardiopulmonary disease/process.
[2023-02-10 08:42] VITALS: BP 150/94; PULSE 66
== END 2023-02-10 08:42 | disposition home or self-care (01) ==
LOC: EC 07:13
DX: S20.211A Contusion of right front wall of thorax, initial encounter (principal); I48.91 Unspecified atrial fibrillation; I10 Essential (primary) hypertension; Z87.891 Personal history of nicotine dependence; Z79.899 Other long term (current) drug therapy; Z79.01 Long term (current) use of anticoagulants; X50.0XXA Overexertion from strenuous movement or load, initial encounter
CPT/HCPCS: 71046; 99283

== ENCOUNTER 2023-09-04 06:48 | Emergency (ER) | payer MEDICARE, BC ==
[2023-09-04 07:10] VITALS: RESP 18
--- NOTE | 2023-09-04 07:27 | ED ---
Extremity Problem HPI - General Chief complaint: Extremity Problem,Nontraumatic Stated complaint: Swelling and lump on right leg Time Seen by Provider: 09/04/23 07:09 Source: patient, RN notes reviewed Mode of arrival: ambulatory Limitations: no limitations - History of Present Illness Initial comments: This is a 67-year-old male who presents to the emergency department for right calf pain and swelling. States that when he woke up, he noticed that his right calf was swollen and there was also a lump on the calf that seemed to be painful. Denies any injuries or history of similar symptoms in the past. He does take Xarelto for atrial fibrillation. Denies any chest pain or shortness of breath. His concern concern is ruling out a blood clot. Denies any history of DVTs. - Related Data Home Medications Medication Instructions Recorded Confirmed Baclofen [Lioresal] 10 mg PO BID PRN 12/17/21 12/17/21 Metoprolol Succinate [Toprol XL] 50 mg PO DAILY 12/17/21 12/17/21 Rivaroxaban [Xarelto] 20 mg PO DAILY 12/17/21 12/17/21 amLODIPine BESYLATE/BENAZEPRIL 1 cap PO DAILY 12/17/21 12/17/21 [Lotrel 10-20 MG] traMADol HCL 50 mg PO BID PRN 12/17/21 12/17/21 Previous Rx's Medication Instructions Recorded Cyclobenzaprine [Flexeril] 5 mg PO TID PRN 7 Days #21 tablet 02/10/23 HYDROcodone/APAP 5-325MG [[place] 1 tab PO Q6HR PRN 3 Days #12 tab 02/10/23 5-325] Lidocaine 5% Patch [Lidoderm 5% 1 patch TOPICAL DAILY PRN 14 Days 02/10/23 Patch] #14 patch Allergies Allergy/AdvReac Type Severity Reaction Status Date / Time No Known Allergies Allergy Verified 02/10/23 07:26 Review of Systems ROS Statement: Those systems with pertinent positive or pertinent negative responses have been documented in the HPI. ROS Other: All systems not noted in ROS Statement are negative. Past Medical History Past Medical History: Atrial Fibrillation, Hypertension, Renal Disease Additional Past Medical History / Comment(s): gout History of Any Multi-Drug Resistant Organisms: None Reported Past Surgical History: No Surgical Hx Reported, Orthopedic Surgery Past Psychological History: No Psychological Hx Reported Smoking Status: Former smoker Past Alcohol Use History: Occasional Past Drug Use History: None Reported General Exam Limitations: no limitations General appearance: alert, in no apparent distress Head exam: Present: atraumatic, normocephalic, normal inspection Respiratory exam: Present: normal lung sounds bilaterally. Absent: respiratory distress, wheezes, rales, rhonchi, stridor Cardiovascular Exam: Present: regular rate, normal rhythm, normal heart sounds. Absent: systolic murmur, diastolic murmur, rubs, gallop, clicks Extremities exam: Present: other (There is a 2cm tender and firm area to the anterior medial aspect of the right tib/fib. No erythema or increased heat.) Psychiatric exam: Present: normal affect, normal mood Course Vital Signs 09/04/23 09/04/23 06:49 08:27 Temperature 97.8 F 97.9 F Pulse Rate 70 74 Respiratory 18 18 Rate Blood Pressure 167/101 113/90 O2 Sat by Pulse 98 98 Oximetry Medical Decision Making - Medical Decision Making This is a 67-year-old male who presents to the emergency department for right leg pain. Was pt. sent in by a medical professional or institution? @ -No Did you speak to anyone other than the patient for history? @ -No Did you review nursing and triage notes? @ -Yes, and I agree, it is accurate with regards to the patient's symptoms. Were old charts reviewed? @ -No Differential Diagnosis? @ -Differential Leg Pain: Leg fracture, leg sprain, DVT, PVD, arterial insufficiency, iliac artery aneurysm, cellulitis, compartment syndrome, tendinopathy, nerve entrapment, piri formis syndrome, osteoarthritis, rhabdomyolysis, myositis, cramping from an electrolyte imbalance, this is not meant to be an all inclusive list. EKG interpreted by me (3pts min.)? @ -Not obtained X-rays interpreted by me (1pt min.)? @ -Not obtained CT interpreted by me (1pt min.)? @ -Not obtained U/S interpreted by me (1pt. min.)? @ -Duplex US of the right lower extremity obtained. My interpretation identifies no evidence of a DVT. What testing was considered but not performed? (CT, X-rays, U/S, labs)? Why? @ -None What meds were considered but not given? Why? @ -None Did you discuss the management of the patient with other professionals? @ -No Did you reconcile home meds? @ -No Was smoking cessation discussed for >3mins.? @ -No Was critical care preformed (if so, how long)? @ -No Were there social determinants of health that impacted care today? How? (Homelessness, low income, unemployed, alcoholism, drug addiction, transportation, low edu. Level, literacy, decrease access to med. care, correction, rehab)? @ -No Was there de-escalation of care discussed even if they declined? (Discuss DNR or withdrawal of care, Hospice)? @ -No What co-morbidities impacted this encounter? (DM, HTN, Smoking, COPD, CAD, Cancer, CVA, Hep., AIDS, mental health diagnosis, sleep apnea, morbid obesity)? @ -A-fib, HTN Was patient admitted / discharged? @ -Discharged. Duplex ultrasound of the right lower extremity obtained demonstrating no evidence of a DVT. The palpable tender area noted on his leg corresponds with a thrombosed varicosity arising from the greater saphenous vein. The GSV proximal and distal to the thrombosed area is free of clot. Findings reviewed with the patient. Advised anti-inflammatories such as ibuprofen, warm compresses, and elevation of the leg. He will otherwise follow up with his primary care provider. Undiagnosed new problem with uncertain prognosis? @ -None Drug Therapy requiring intensive monitoring for toxicity (Heparin, Nitro, Insulin, Cardizem)? @ -None Were any procedures done? @ -None Diagnosis/symptom? @ -Superficial venous thrombosis Acute, or Chronic, or Acute on Chronic? @ -Acute Uncomplicated (without systemic symptoms) or Complicated (systemic symptoms)? @ -Uncomplicated Side effects of treatment? @ -None Exacerbation, Progression, or Severe Exacerbation] @ -Not applicable Poses a threat to life or bodily function? @ -No Return precautions reviewed in depth, the patient is instructed to return to the emergency department with any new, worsening, or concerning symptoms. Patient verbalized understanding. This case was discussed in detail with the attending ED physician, Dr. Lau. Presentation, findings, and treatment plan discussed in detail as well. - Radiology Data Radiology results: report reviewed, image reviewed Disposition Clinical Impression: Acute superficial venous thrombosis of right lower extremity Disposition: HOME SELF-CARE Instructions (If sedation given, give patient instructions): Superficial Thrombophlebitis (ED) Additional Instructions: Return to the emergency department with any new, worsening, or concerning symptoms. Take over the counter anti-inflammatories, apply warm compresses or use compression stockings, and elevate the leg. Follow up with your primary care provider in 1-2 days. Is patient prescribed a controlled substance at d/c from ED?: No Referrals: Xiang Dickey MD [Primary Care Provider] - 1-2 days
--- NOTE | 2023-09-04 07:58 | US ---
EXAMINATION TYPE: US venous doppler duplex LE RT DATE OF EXAM: 09/04/2023 7:48 AM COMPARISON: NONE CLINICAL INDICATION: Male, 67 years old with history of Right calf pain and swelling; Patient noticed hard, red, painful lump at the medial proximal portion on the calf last night, pt. on blood thinners for a-fib SIDE PERFORMED: Right TECHNIQUE: The lower extremity deep venous system is examined utilizing real time linear array sonog leida with graded compression, doppler sonography and color-flow sonography. VESSELS IMAGED: Common Femoral Vein Deep Femoral Vein Greater Saphenous Vein * Femoral Vein Popliteal Vein Small Saphenous Vein * Proximal Calf Veins (* superficial vessels) Right Leg: Negative for DVT, Grayscale, color doppler, spectral doppler imaging performed of the corwin p veins of the lower extremities. There is normal flow, compressibility, vascular waveforms. additional images taken at area of concern. Palpable area corresponds to a 0.8x0.5x0.7cm thrombosed v aricosity arising from the greater saphenous vein. The GSV proximal and distal to the thrombosed area is free of clot. IMPRESSION: 1. No deep vein thrombosis. 2. Thrombosed varicosity present.
[2023-09-04 08:43] VITALS: BP 113/90; PULSE 74; TEMP 97.9
== END 2023-09-04 08:28 | disposition home or self-care (01) ==
LOC: EC 06:48
DX: I82.811 Embolism and thrombosis of superficial veins of right lower extremity (principal); I10 Essential (primary) hypertension; I48.91 Unspecified atrial fibrillation; Z79.01 Long term (current) use of anticoagulants; Z79.899 Other long term (current) drug therapy; Z87.891 Personal history of nicotine dependence
CPT/HCPCS: 99283

== ENCOUNTER → 2023-11-25 | Outpatient (CLI) | payer MEDICARE, BC ==
--- NOTE | 2023-11-28 15:45 | XR ---
EXAMINATION TYPE: XR wrist complete 4 views LT, XR hand complete LT 3 views DATE OF EXAM: 11/25/2023 COMPARISON: 09/02/2021 HISTORY: 68-year-old male M25.532, left wrist pain FINDINGS: Wrist: Moderate degenerative spurring and joint space narrowing at the first CMC joint and mild at the trisc aphe joint. There is some cystic change within the ulnar proximal aspect of the lunate bone. 5 mm corticated ossi fic densities interposed at the ulnocarpal joint are unchanged. Some faint synovial calcifications al godwin the volar aspect of the wrist. There may be mild soft tissue swelling. No acute fracture, subluxation, dislocation. Hand: Mild degenerative spurring at the first MCP and IP joint. Soft tissue swelling overlying the dorsal a spect of the metacarpal heads on the lateral view. No marginal or juxta articular erosions are seen. No additional soft tissue calcifications. No acute fracture or dislocation. IMPRESSION: Wrist: 1. Mild soft tissue swelling. Some faint synovial calcifications along the volar aspect of the wrist. Correlate to exclude the possibilities of gout or CPPD. 2. Some cystic change within the lunate bone may be seen with ulnar impaction syndrome. Correlate for any chronic ulnar-sided wrist pain. 3. Corticated densities measuring up to 5 mm at the ulnar aspect of the wrist, possible sequela of ol d injury. 4. Mild to moderate osteoarthritic change at the base of the thumb. Hand: 5. Additional dorsal soft tissue swelling along the hand. Clinically correlate as to etiology. 6. Mild osteoarthritic change throughout the remaining joints of the thumb.
== END | disposition home or self-care (01) ==
LOC: RADXRMAIN 13:14
PROVIDERS: ATTEND Internal Medicine
DX: M79.89 Other specified soft tissue disorders (principal); M19.09 Primary osteoarthritis, other specified site

== ENCOUNTER → 2023-12-08 | Outpatient (CLI) | payer MEDICARE, BC ==
--- NOTE | 2023-12-14 19:29 | CTL ---
EXAMINATION TYPE: CT Low Dose Lung DATE OF EXAM: 12/08/2023 12:24 PM CLINICAL INDICATION:Male, 68 years old with history of Z12.2 lung cancer scr Z87.891 former smoker; personal hx of tobacco use. 1 pack/ day x 40 years. Quit smoking in 2013. , history of tobacco use. COMPARISON: None. TECHNIQUE: Multiple axial non-contrast scans were obtained from approximately the lung apices through the upper abdomen. Coronal and sagittal reformatted images were obtained. Low dose technique was uti lized. CT DLP: 145.3 mGycm, Automated exposure control for dose reduction was used. CT Contrast: Contrast used: None Oral contrast used: None FINDINGS: ======== Lack of intravenous contrast and low dose technique limits the evaluation of the vascular and soft ti ssue structures. LUNGS: No evidence of pulmonary fibrosis. No evidence of focal consolidation, pneumothorax or pleural effusion. Right-sided [place] fat-containing hernia. Unchanged from prior. Nodules: RUL: None. RML: None. RLL: None. NAVDEEP: None. LLL: 14 mm calcified granuloma indicating healed granulomatous disease.. AIRWAY: Patent and unremarkable. HEART: Size within normal limits. MEDIASTINUM: No gross evidence of adenopathy. VASCULATURE: No aortic aneurysm. Ectatic, measuring 39 mm. MUSCULOSKELETAL: No acute osseous abnormalities SOFT TISSUES/LYMPH NODES: Unremarkable. LOWER NECK: No significant findings. UPPER ABDOMEN: No significant findings. As above, Right-sided [place] fat-containing hernia. IMPRESSION: 1. No clinically significant pulmonary nodules. CT LUNG RAD AND CT CHEST RECOMMENDATION: Lung-Rad 1 Negative: Continue annual screening with LDCT in 12 months. S Modifier (other clinically significant findings): None Recommend smoking cessation (if current smoker), or continuation of smoking cessation (if prior smoke r). Annual screening for lung cancer with low-dose computed tomography is recommended in adults ages 55 to 77 years who have a 30 pack-year smoking history and currently smoke or have quit within the pa st 15 years. Screening should be discontinued once a person has not smoked for 15 years or develops a health problem that substantially limits life expectancy or the ability or willingness to have curat clare lung surgery. Lung rads 2021 [email or web address]
== END | disposition home or self-care (01) ==
LOC: RADCTMAIN 11:58
PROVIDERS: ATTEND Internal Medicine
DX: Z12.2 Encounter for screening for malignant neoplasm of respiratory organs (principal); Z87.891 Personal history of nicotine dependence
CPT/HCPCS: 71271

== ENCOUNTER → 2024-01-12 | Outpatient (CLI) | payer MEDICARE, BC ==
--- NOTE | 2024-01-13 07:21 | XR ---
EXAMINATION TYPE: XR chest 2V DATE OF EXAM: 01/12/2024 4:37 PM CLINICAL INDICATION:Male, 68 years old with history of R05.8 OTHER SPECIFIED COUGH; [facility] COMPARISON: Chest radiographs from 10/01/2022. TECHNIQUE: XR chest 2V Frontal and lateral views of the chest. FINDINGS: Lungs/Pleura: There is no evidence of pleural effusion, focal consolidation, or pneumothorax. Pulmonary vascularity: Unremarkable. Heart/mediastinum: Cardiomediastinal silhouette is unremarkable. Musculoskeletal: No acute osseous pathology. IMPRESSION: No acute cardiopulmonary disease/process.
== END | disposition home or self-care (01) ==
LOC: RADXRMAIN 16:14
PROVIDERS: ATTEND Internal Medicine
DX: R05.8 Other specified cough (principal)
CPT/HCPCS: 71046

== ENCOUNTER → 2024-01-26 | Outpatient (CLI) | payer MEDICARE, BC ==
--- NOTE | 2024-01-26 15:45 | XR ---
EXAMINATION TYPE: XR shoulder limited LT DATE OF EXAM: 01/26/2024 COMPARISON: NONE HISTORY: 68-year-old male M25.512 PAIN IN LEFT SHOULDER TECHNIQUE: 2 views FINDINGS: AC joint appears congruent and intact. Subacromial space is preserved. Limited 2 views with AP internal rotation and scapular Y views. No acute fracture, subluxation, dislocation is identified given this limitation. IMPRESSION: No acute osseous abnormality seen on these 2 views.
== END | disposition home or self-care (01) ==
LOC: RADXRMAIN 12:51
PROVIDERS: ATTEND Internal Medicine
DX: M25.512 Pain in left shoulder (principal)

== ENCOUNTER 2024-02-07 17:40 | Emergency (ER) | payer MEDICARE, BC ==
[2024-02-07 18:15] VITALS: RESP 18
--- NOTE | 2024-02-07 18:24 | ED ---
Recheck HPI - General Chief Complaint: Extremity Problem,Nontraumatic Stated Complaint: L Wrist Pain Time Seen by Provider: 02/07/24 17:58 Source: patient, RN notes reviewed, old records reviewed Mode of arrival: EMS Limitations: no limitations - History of Present Illness Initial Comments: This is a 68-year-old male complaining of body aches pains left wrist pain back pain knee pain coming in for evaluation regards to just not feeling well. Seen by primary care this morning and presents to the ER which is increasing body aches, patient has no acute complaints currently. He is brought in by EMS for further management MD Complaint: abnormal lab, other (Generalized pain) -: days(s) Returns Today for: persistent/worsening pain related to initial visit Symptoms Since Prior Visit: no new symptoms, worsening pain Associated Symptoms: none - Related Data Home Medications Medication Instructions Recorded Confirmed Baclofen [Lioresal] 10 mg PO BID PRN 12/17/21 12/17/21 Metoprolol Succinate [Toprol XL] 50 mg PO DAILY 12/17/21 12/17/21 Rivaroxaban [Xarelto] 20 mg PO DAILY 12/17/21 12/17/21 amLODIPine BESYLATE/BENAZEPRIL 1 cap PO DAILY 12/17/21 12/17/21 [Lotrel 10-20 MG] traMADol HCL 50 mg PO BID PRN 12/17/21 12/17/21 Previous Rx's Medication Instructions Recorded Cyclobenzaprine [Flexeril] 5 mg PO TID PRN 7 Days #21 tablet 02/10/23 HYDROcodone/APAP 5-325MG [Helotes 1 tab PO Q6HR PRN 3 Days #12 tab 02/10/23 5-325] Lidocaine 5% Patch [Lidoderm 5% 1 patch TOPICAL DAILY PRN 14 Days 02/10/23 Patch] #14 patch Ketorolac [Toradol] 10 mg PO Q8HR #15 tab 02/06/24 HYDROcodone/APAP 5-325MG [Helotes 1 tab PO Q6HR PRN #12 tab 02/07/24 5-325] Allergies Allergy/AdvReac Type Severity Reaction Status Date / Time No Known Allergies Allergy Verified 02/10/23 07:26 Review of Systems ROS Statement: Those systems with pertinent positive or pertinent negative responses have been documented in the HPI. ROS Other: All systems not noted in ROS Statement are negative. Past Medical History Past Medical History: Atrial Fibrillation, Hypertension, Renal Disease Additional Past Medical History / Comment(s): gout History of Any Multi-Drug Resistant Organisms: None Reported Past Surgical History: No Surgical Hx Reported, Orthopedic Surgery Past Psychological History: No Psychological Hx Reported Smoking Status: Former smoker Past Alcohol Use History: Occasional Past Drug Use History: None Reported General Exam Limitations: no limitations General appearance: alert, in no apparent distress Head exam: Present: atraumatic, normocephalic, normal inspection Eye exam: Present: normal appearance, PERRL, EOMI. Absent: scleral icterus, conjunctival injection, periorbital swelling ENT exam: Present: normal exam, mucous membranes moist Neck exam: Present: normal inspection. Absent: tenderness, meningismus, lymphadenopathy Respiratory exam: Present: normal lung sounds bilaterally. Absent: respiratory distress, wheezes, rales, rhonchi, stridor Cardiovascular Exam: Present: regular rate, normal rhythm, normal heart sounds. Absent: systolic murmur, diastolic murmur, rubs, gallop, clicks GI/Abdominal exam: Present: soft, normal bowel sounds. Absent: distended, tenderness, guarding, rebound, rigid Extremities exam: Present: normal inspection, full ROM, normal capillary refill. Absent: tenderness, pedal edema, joint swelling, calf tenderness Back exam: Present: normal inspection Neurological exam: Present: alert, oriented X3, CN II-XII intact Psychiatric exam: Present: normal affect, normal mood Skin exam: Present: warm, dry, intact, normal color. Absent: rash Course Vital Signs 02/07/24 02/07/24 17:42 22:32 Temperature 98.9 F Pulse Rate 106 H 86 Respiratory 18 18 Rate Blood Pressure 145/79 112/83 O2 Sat by Pulse 100 99 Oximetry - Reevaluation(s) Reevaluation #1: Medical records reviewed Reevaluation #2: Patient symptoms unchanged Reevaluation #3: Patient informed of results and questions answered Reevaluation #4: Was pt. sent in by a medical professional or institution (, PA, PROJ ENGINEER, urgent care, hospital, or fpc...) When possible be specific @ -no Did you speak to anyone other than the patient for history (EMS, parent, family, police, friend...)? What history was obtained from this source @ -no Did you review nursing and triage notes (agree or disagree)? Why? @ -agree Are old charts reviewed (outside hosp., previous admission, EMS record, old EKG, old radiological studies, urgent care reports/EKG's, fpc records)? Report findings @ -yes Differential Diagnosis (chest pain, altered mental status, abdominal pain women, abdominal pain men, vaginal bleeding, weakness, fever, dyspnea, syncope, headache, dizziness, GI bleed, back pain, seizure, CVA, palpatations, mental health, musculoskeletal)? @ -prior EKG interpreted by me (3pts min.). @ -no X-rays interpreted by me (1pt min.). @ -no CT interpreted by me (1pt min.). @ -no U/S interpreted by me (1pt. min.). @ -no What testing was considered but not performed or refused? (CT, X-rays, U/S, labs)? Why? @ -none What meds were considered but not given or refused? Why? @ -none Did you discuss the management of the patient with other professionals (professionals i.e. , PA, PROJ ENGINEER, lab, RT, psych nurse, social organization professor, cardiopulmonary technician and eeg tech, teacher, chairman & chief executive officer, bilingual case manager)? Give summary @ -no Was smoking cessation discussed for >3mins.? @ -no Was critical care preformed (if so, how long)? @ -no Were there social determinants of health that impacted care today? How? (Homelessness, low income, unemployed, alcoholism, drug addiction, transportati on, low edu. Level, literacy, decrease access to med. care, skilled nursing, rehab)? @ -none Was there de-escalation of care discussed even if they declined (Discuss DNR or withdrawal of care, Hospice)? DNR status @ -no What co-morbidities impacted this encounter? (DM, HTN, Smoking, COPD, CAD, Cancer, CVA, ARF, Chemo, Hep., AIDS, mental health diagnosis, sleep apnea, morbid obesity)? @ -none Was patient admitted / discharged? Hospital course, mention meds given and route, prescriptions, significant lab abnormalities, going to OR and other pertinent info. @ - 68 male mainly complaining of wrist pain but is brought in by EMS patient presents for possible abnormal lab testing. Patient himself has no severe complaints here in the emergency department pain is well-controlled he states pain is just out more that he is normally used to. He has no significant traumatic injury to note and feels well here in the ER okay for discharge home Discharge Undiagnosed new problem with uncertain prognosis? @ -no Drug Therapy requiring intensive monitoring for toxicity (Heparin, Nitro, Insulin, Cardizem)? @ -no Were any procedures done? @ -no Diagnosis/symptom? @ -Viral syndrome, nonspecific body aches and pains left wrist pain Acute, or Chronic, or Acute on Chronic? @ -Acute Uncomplicated (without systemic symptoms) or Complicated (systemic symptoms)? @ -Complicated Side effects of treatment? @ -no Exacerbation, Progression, or Severe Exacerbation? @ -exacerbation Poses a threat to life or bodily function? How? (Chest pain, [place], [place], pneumonia, PE, COPD, DKA, ARF, appy, cholecystitis, CVA, Diverticulitis, Homicidal, Suicidal, threat to staff... and all critical care pts) @ -no Medical Decision Making - Medical Decision Making 68 male mainly complaining of wrist pain but is brought in by EMS patient presents for possible abnormal lab testing. Patient himself has no severe complaints here in the emergency department pain is well-controlled he states pain is just out more that he is normally used to. He has no significant traum atic injury to note and feels well here in the ER okay for discharge home - Lab Data Result diagrams: 02/07/24 18:30 02/07/24 19:35 Lab Results 02/07/24 02/07/24 02/07/24 Range/Units 18:30 19:35 19:35 WBC 7.1 (3.8-10.6) k/uL RBC 4.26 L (4.30-5.90) m/uL Hgb 13.1 (13.0-17.5) gm/dL Hct 38.5 L (39.0-53.0) % MCV 90.5 (80.0-100.0) fL MCH 30.7 (25.0-35.0) pg MCHC 33.9 (31.0-37.0) g/dL RDW 13.6 (11.5-15.5) % Plt Count 175 (150-450) k/uL MPV 10.0 Neutrophils % 81 % Lymphocytes % 9 % Monocytes % 7 % Eosinophils % 1 % Basophils % 0 % Neutrophils # 5.7 (1.3-7.7) k/uL Lymphocytes # 0.7 L (1.0-4.8) k/uL Monocytes # 0.5 (0-1.0) k/uL Eosinophils # 0.1 (0-0.7) k/uL Basophils # 0.0 (0-0.2) k/uL Sodium 138 (137-145) mmol/L Potassium 4.0 (3.5-5.1) mmol/L Chloride 107 (98-107) mmol/L Carbon Dioxide 22 (22-30) mmol/L Anion Gap 9 mmol/L BUN 23 H (9-20) mg/dL Creatinine 0.74 (0.66-1.25) mg/dL Est GFR (CKD-EPI)AfAm >90 (>60 ml/min/1.73 sqM) Est GFR (CKD-EPI)NonAf >90 (>60 ml/min/1.73 sqM) Glucose 110 H (74-99) mg/dL Calcium 8.3 L (8.4-10.2) mg/dL Phosphorus 1.3 L (2.5-4.5) mg/dL Magnesium 1.6 (1.6-2.3) mg/dL Total Bilirubin 1.5 H (0.2-1.3) mg/dL AST 20 (17-59) U/L ALT 11 (4-49) U/L Alkaline Phosphatase 66 (38-126) U/L Troponin I <0.012 (0.000-0.034) ng/mL Total Protein 6.2 L (6.3-8.2) g/dL Albumin 3.5 (3.5-5.0) g/dL Disposition Clinical Impression: Body aches, Right hip pain, Neck pain, Left wrist pain Disposition: HOME SELF-CARE Condition: Fair Prescriptions: HYDROcodone/APAP 5-325MG [Helotes 5-325] 1 tab PO Q6HR PRN #12 tab PRN Reason: Pain Is patient prescribed a controlled substance at d/c from ED?: No Referrals: Xiang Dickey DO [Primary Care Provider] - 1-2 days Time of Disposition: 22:00
[2024-02-07] MEDS: HYDROmorphone 1 MG/ML 1 ML SYRINGE IVP STA (18:27)
[2024-02-07] MEDS: DEXAMETHASONE SOD PHOSPHATE 10 MG/ML 1 ML VIAL IVP STA (18:28)
[2024-02-07] MEDS: SODIUM CHLORIDE 0.9% 1,000 ML IV STA (18:28)
[2024-02-07 19:12] LABS: Basophils % (A) 0 %; Eosinophils # (A) 0.1 k/uL (0-0.7); Eosinophils % (A) 1 %; HCT 38.5 % (39.0-53.0); HGB 13.1 gm/dL (13.0-17.5); Lymphocytes # (A) 0.7 k/uL (1.0-4.8); Lymphocytes % (A) 9 %; MCH 30.7 pg (25.0-35.0); MCHC 33.9 g/dL (31.0-37.0); MCV 90.5 fL (80.0-100.0); Monocytes # (A) 0.5 k/uL (0-1.0); Monocytes % (A) 7 %; Neutrophils # (A) 5.7 k/uL (1.3-7.7); Neutrophils % (A) 81 %; Platelet Count 175 k/uL (150-450); RBC 4.26 m/uL (4.30-5.90); RDW 13.6 % (11.5-15.5); WBC 7.1 k/uL (3.8-10.6)
[2024-02-07 19:57] LABS: ALT 11 U/L (4-49); AST 20 U/L (17-59); African American GFR (CKD) >90 (>60 ml/min/1.73 sqM); Albumin 3.5 g/dL (3.5-5.0); Alkaline Phosphatase 66 U/L (38-126); Anion Gap 9 mmol/L; Blood Urea Nitrogen 23 mg/dL (9-20); Calcium 8.3 mg/dL (8.4-10.2); Carbon Dioxide 22 mmol/L (22-30); Chloride 107 mmol/L (98-107); Glucose 110 mg/dL (74-99); Magnesium 1.6 mg/dL (1.6-2.3); Non-African American GFR(CKD) >90 (>60 ml/min/1.73 sqM); Phosphorus 1.3 mg/dL (2.5-4.5); Sodium 138 mmol/L (137-145); Total Bilirubin 1.5 mg/dL (0.2-1.3); Total Protein 6.2 g/dL (6.3-8.2)
[2024-02-07] MEDS: HYDROcodone/APAP 5-325MG 1 EACH TAB PO STA (22:13)
[2024-02-07] MEDS: HYDROmorphone 0.5 MG/0.5 ML SYRINGE IVP STA (22:14)
[2024-02-07 23:01] VITALS: BP 112/83; PULSE 86; TEMP 98.9
== END 2024-02-07 22:34 | disposition home or self-care (01) ==
LOC: EC 17:40
DX: M25.551 Pain in right hip (principal); M54.2 Cervicalgia; M25.532 Pain in left wrist; Z87.891 Personal history of nicotine dependence
CPT/HCPCS: 99284; 96374; 96375; 96376; 96361; 36415; 80053; 83735; 84100; 84484; 85025; J1100; J1170 ×2

== ENCOUNTER → 2024-02-15 | Outpatient (CLI) | payer MEDICARE, BC ==
[2024-02-15 09:23] LABS: Ionized Calcium 5.1 mg/dL (4.5-5.3)
[2024-02-15 16:47] LABS: BUN/Creat Ratio 12.18 Ratio (12.00-20.00); Blood Urea Nitrogen 13.4 mg/dL (9.0-27.0); Calcium 10.3 mg/dL (8.7-10.3); Carbon Dioxide 26.5 mmol/L (21.6-31.8); Chloride 98 mmol/L (96-109); Glucose 106 mg/dL (70-110); Magnesium 2.3 mg/dL (1.5-2.4); Phosphorus 3.5 mg/dL (2.4-5.1); Potassium 5.4 mmol/L (3.5-5.5); Sodium 139 mmol/L (135-145)
== END | disposition home or self-care (01) ==
LOC: LABWHC1 08:13
PROVIDERS: ATTEND Internal Medicine
DX: E83.39 Other disorders of phosphorus metabolism (principal)
CPT/HCPCS: 36415; 80048; 82306; 82330; 83735; 83970; 84100

== ENCOUNTER → 2024-03-29 | Outpatient (CLI) | payer MEDICARE, BC ==
[2024-03-29 15:09] LABS: Basophils # (A) 0.09 X 10*3/uL (0.00-0.10); Basophils % (A) 1.1 %; Eosinophils # (A) 0.24 X 10*3/uL (0.04-0.35); HCT 45.9 % (39.6-50.0); HGB 15.2 g/dL (13.0-17.0); Lymphocytes # (A) 1.59 X 10*3/uL (0.90-5.00); Lymphocytes % (A) 19.6 %; MCH 30.6 pg (27.0-32.0); MCHC 33.1 g/dL (32.0-37.0); MCV 92.4 FL (80.0-97.0); Mean Platelet Volume 11.9 FL (9.5-12.2); Monocytes # (A) 0.85 X 10*3/uL (0.20-1.00); Monocytes % (A) 10.5 %; NRBC Per 100 WBC 0 X 10*3/uL (0.00-0.01); Neutrophils # (A) 5.27 X 10*3/uL (1.80-7.70); Neutrophils % (A) 64.8 %; Platelet Count 187 X 10*3/uL (140-440); RBC 4.97 X 10*6/uL (4.40-5.60); RDW 13.3 % (11.5-14.5); WBC 8.12 X 10*3/uL (4.50-10.00)
[2024-03-29 15:26] LABS: Appearance,Urine Clear (Clear); Bilirubin,Urine Negative (Negative); Blood,Urine Negative (Negative); Color,Urine Yellow (Yellow); Ketones,Urine Trace (Negative); Nitrite,Urine Negative (Negative); PH, Urine 6.5; Specific Gravity,Urine 1.019 (1.001-1.030)
[2024-03-29 15:29] LABS: Bacteria,Urine None Seen (None Seen)
[2024-03-29 15:50] LABS: Iron 58 UG/DL (65-175); Magnesium 2.2 mg/dL (1.5-2.4); Phosphorus 4.2 mg/dL (2.4-5.1); Uric Acid 8.1 mg/dL (3.7-8.7)
[2024-03-29 15:51] LABS: % Iron Saturation 15.51 (15.00-50.00); Albumin 4.5 g/dL (3.8-4.9); Blood Urea Nitrogen 13.2 mg/dL (9.0-27.0); Calcium 9.7 mg/dL (8.7-10.3); Carbon Dioxide 25.7 mmol/L (21.6-31.8); Chloride 104 mmol/L (96-109); Glucose 87 mg/dL (70-110); Potassium 4.7 mmol/L (3.5-5.5); Sodium 142 mmol/L (135-145); Total Iron Binding Capacity 374 UG/DL (228-460)
== END | disposition home or self-care (01) ==
LOC: LABWHC1 11:21
PROVIDERS: ATTEND Internal Medicine Nephrology
DX: N25.81 Secondary hyperparathyroidism of renal origin (principal); N39.0 Urinary tract infection, site not specified; E55.9 Vitamin D deficiency, unspecified; M10.9 Gout, unspecified; N18.2 Chronic kidney disease, stage 2 (mild); D63.1 Anemia in chronic kidney disease; R80.9 Proteinuria, unspecified
CPT/HCPCS: 36415; 80048; 81001; 82040; 82043; 82306; 82570; 82728; 83540; 83550; 83735; 83970; 84100; 84550; 85025

== ENCOUNTER → 2024-07-02 | Outpatient (CLI) | payer MEDICARE, BC ==
[2024-07-02 16:09] LABS: HCT 43.9 % (39.6-50.0); HGB 14.2 g/dL (13.0-17.0); MCH 30.3 pg (27.0-32.0); MCHC 32.3 g/dL (32.0-37.0); MCV 93.8 FL (80.0-97.0); Mean Platelet Volume 12.2 FL (9.5-12.2); NRBC Per 100 WBC 0 X 10*3/uL (0.00-0.01); NT-Pro-B-Type Natriuretic Pept 412 pg/mL (0-125); Platelet Count 191 X 10*3/uL (140-440); RBC 4.68 X 10*6/uL (4.40-5.60); RDW 13.7 % (11.5-14.5); WBC 6.91 X 10*3/uL (4.50-10.00)
[2024-07-02 19:09] LABS: BUN/Creat Ratio 13.55 Ratio (12.00-20.00); Blood Urea Nitrogen 14.9 mg/dL (9.0-27.0); Calcium 9.7 mg/dL (8.7-10.3); Chloride 102 mmol/L (96-109); Glucose 105 mg/dL (70-110); Potassium 5.1 mmol/L (3.5-5.5); Sodium 143 mmol/L (135-145)
== END | disposition home or self-care (01) ==
LOC: LABWHC1 08:31
PROVIDERS: ATTEND Internal Medicine
DX: R06.02 Shortness of breath (principal)
CPT/HCPCS: 36415; 80048; 83880; 85027

== ENCOUNTER → 2024-10-09 | Outpatient (CLI) | payer MEDICARE, BC ==
--- NOTE | 2024-10-09 15:28 | XR ---
EXAMINATION TYPE: XR chest 2V DATE OF EXAM: 10/09/2024 3:24 PM COMPARISON: 01/12/2024 CLINICAL INDICATION: Male, 68 years old with shortness of breath, history of R06.00 DYSPNEA, UNSPECIF IED, , TECHNIQUE: Frontal and lateral views FINDINGS: Heart is borderline enlarged. Hyperinflation. Mild interstitial prominence. No consolidation or pleur al effusion. IMPRESSION: Borderline heart size and COPD. No definite acute process. [facility], Workstation: [facility], 10/09/2024 3:26 PM
== END | disposition home or self-care (01) ==
LOC: RADXRMAIN 15:12
PROVIDERS: ATTEND Internal Medicine
DX: R06.00 Dyspnea, unspecified (principal)
CPT/HCPCS: 71046

== ENCOUNTER 2024-11-22 06:20 | Day surgery (SDC) | payer MEDICARE, BC ==
[~2024-11-22 06:20] MED LIST: SODIUM CHLORIDE 0.9% 1,000 ML IV SCH
[2024-11-22 06:52] VITALS: RESP 16; TEMP 97.5
[2024-11-22] MEDS: IV FLUID CONTINUATION 1,000 ML IV ONE (07:05)
[2024-11-22] MEDS ORDERED: PROPOFOL 10 MG/ML 20 ML VIAL IV ONE (07:27)
[2024-11-22] MEDS ORDERED: LIDOCAINE 1% INJ 10MG/ML (20 ML MDV) ONE (07:27)
[2024-11-22] MEDS: BENZOCAINE SPRAY 1 EACH MM ONE (07:40)
[2024-11-22 07:50] LABS: African American GFR (CKD) >90 (>60 ml/min/1.73 sqM); Anion Gap 9 mmol/L; Blood Urea Nitrogen 18 mg/dL (9-20); Carbon Dioxide 31 mmol/L (22-30); Chloride 99 mmol/L (98-107); Glucose 83 mg/dL (74-99); Non-African American GFR(CKD) >90 (>60 ml/min/1.73 sqM); Sodium 139 mmol/L (137-145)
--- NOTE | 2024-11-22 08:05 | P.PCN ---
Date of Procedure: 11/22/24 Operative Findings: TRANSESOPHAGEAL ECHOCARDIOGRAM COST AND SALES RECORD SUPERVISOR: YESY VIERA MD, RPVI INDICATION: Rule out intracardiac thrombus before cardioversion SEDATION: Conscious sedation COMPLICATION: None LEVEL OF SEDATION The procedure was performed using propofol with STEEL DIE ENGRAVER in the room PROCEDURE DESCRIPTION: After obtaining an informed consent, the patient was brought to transesophageal echocardiogram room. Pulse oximetry and heart monitors were attached to the patient. The patient throat was sprayed using lidocaine. The patient was turned into left lateral position. After that a bite guard was placed. After an appropriate conscious sedation was initiated, the transesophageal echocardiogram was advanced through a bite guard into the mid esophagus. A 2-D echocardiogram images, color Doppler images, continuous wave images, pulse-wave images, of various cardiac structure were performed. After that the transesophageal echocardiogram probe was advanced into the stomach and fixed to obtain transgastric view was. The probe was brought into the mid esophagus. Inter-atrial septum was interrogated using 2D images, color Doppler images, and then contrast study. After that transesophageal echocardiogram was withdrawn out and upon withdrawing the descending thoracic aorta all the way up to the arch was evaluated. CONCLUSION: 1. Intact left atrial appendage and no evidence of intracardiac thrombus 2. Mildly impaired LV function with EF around 40 to 45% 3. Normal intracardiac valves 4. Intact left atrial appendage 5. Mildly dilated right ventricle with normal function 6. No pericardial effusion
--- NOTE | 2024-11-22 08:05 | P.PCN ---
Date of Procedure: 11/22/24 Operative Findings: Cardioversion Report Performing physician Ralph Muse M.D. Procedure performed Successful cardioversion of atrial fibrillation to normal sinus mechanism using 200 J and second attempt Indication Symptomatic atrial fibrillation Complication None Level of sedation The procedure was performed under deep sedation using propofol with POPPED CORN OVEN ATTENDANT in the room Procedure description After obtaining an informed consent the patient was brought to the recovery room. Sedation was introduced using propofol with POPPED CORN OVEN ATTENDANT in the room. Subsequently the patient cardioverted from atrial fibrillation to normal sinus mechanism using 200 J and first attempt Conclusion Successful cardioversion of atrial fibrillation to normal sinus mechanism using 200 J Postprocedure management Continue the current medical regimen Continue oral anticoagulation Follow-up with the patient
[2024-11-22 09:00] VITALS: BP 120/78; PULSE 69
== END 2024-11-22 09:17 | disposition home or self-care (01) ==
LOC: OR 06:20
PROVIDERS: ATTEND Internal Medicine Interventional Cardiology
DX: I48.0 Paroxysmal atrial fibrillation (principal); I51.7 Cardiomegaly; I38 Endocarditis, valve unspecified; I10 Essential (primary) hypertension; N28.9 Disorder of kidney and ureter, unspecified; M10.9 Gout, unspecified; E66.3 Overweight; Z82.49 Family history of ischemic heart disease and other diseases of the circulatory system; Z87.891 Personal history of nicotine dependence; Z68.29 Body mass index [BMI] 29.0-29.9, adult; Z79.899 Other long term (current) drug therapy
CPT/HCPCS: 93312; 93320; 93325; 92960; 80048; J2003; J2704

== ENCOUNTER → 2024-12-10 | Outpatient (CLI) | payer MEDICARE, BC ==
--- NOTE | 2024-12-10 07:34 | CTL ---
EXAMINATION TYPE: CT Low Dose Lung DATE OF EXAM ORDERED: 12/10/2024 COMPARISON: Prior study December 08, 2023 and older studies CLINICAL INDICATION: Male, 69 years old with history of Z12.2 Screening; Z87.891 FORMER SMOKER; [facility], Former smoker, was 1 ppd x 40 years, quit 15 years ago, no concerns, Lung cancer screening, History o f Smoking/tobacco use. TECHNIQUE: Low dose computed tomography scan was performed through the chest at 1 mm thick sections a nd reconstructed images in multiple planes at 1 mm and [address] DLP: [address] CTDI: 2.18 mGy Automated exposure control for dose reduction was used. CT DIAGNOSTIC QUALITY: Satisfactory FINDINGS: LUNG NODULES: Present, detailed below: Stable Densely calcified 1.7 x 1.3 cm left lower lobe nodule axial image 238. Densely calcified 8 mm nodule or benign granuloma axial image 202 left lower lobe There is additional calcified 6 mm left lo wer lobe nodule axial image 214. No suspicious new greater than 4 mm noncalcified pulmonary nodules LUNGS: COPD: Severity: Mild Fibrosis: Severity: Focal moderate left basilar medial linear scarring; Lymph nodes: No abnormal greater than 1 noncalcified lymph nodes. Other findings: Adjacent Ascending aorta measures up to 4.0cm in diameter. RIGHT PLEURAL SPACE: Effusion: None Calcification: None Thickening: None Pneumothorax: None LEFT PLEURAL SPACE: Effusion: None Calcification: None Thickening: None Pneumothorax: None HEART: Heart Size: Upper limits of normal Coronary calcification: Mild to moderate Pericardial effusion: None. OTHER FINDINGS: Upper abdomen: Cystic change throughout the left kidney is partially imaged. Bony thorax: Underlying scoliotic curvature centered upper thoracic spine. Exaggerated thoracic kypho sis. Supraclavicular region: No greater than 1 cm Other: Mild right greater than left flame-shaped subareolar gynecomastia. IMPRESSION: No suspicious noncalcified pulmonary nodules CT LUNG RAD AND CT CHEST RECOMMENDATION: Lung-Rad 2 Benign Appearance or Behavior: Continue annual sc reening with LDCT in 12 months. S Modifier (other clinically significant findings): None [facility], , 12/10/2024 7:31 AM
== END | disposition home or self-care (01) ==
LOC: RADCTMAIN 06:05
PROVIDERS: ATTEND Internal Medicine
DX: Z12.2 Encounter for screening for malignant neoplasm of respiratory organs (principal); J44.9 Chronic obstructive pulmonary disease, unspecified; J98.4 Other disorders of lung; Z87.891 Personal history of nicotine dependence
CPT/HCPCS: 71271

== ENCOUNTER → 2025-01-31 | Outpatient (CLI) | payer MEDICARE, BC ==
--- NOTE | 2025-01-31 14:22 | US ---
EXAMINATION TYPE: US kidneys/renal and bladder DATE OF EXAM: 01/31/2025 COMPARISON: NONE CLINICAL INDICATION: Male, 69 years old with history of N18.2 CHRONIC KIDNEY DISEASE, STAGE 2 (MILD); CKD 2 TECHNIQUE: Grayscale imaging of the bilateral kidneys and urinary bladder: FINDINGS: EXAM MEASUREMENTS: Right Kidney: 12.9 x 5.8 x 5.6 cm Left Kidney: 11.8 x 7.4 x 4.6. cm Right Kidney: Anechoic area upper pole 1.4 x 1.3 x 1.5 cm Left Kidney: Multiple cysts seen largest 11.5 x 8.9 x 7.8 cm. Bladder: Not fully distended. Stable 1.5 cm simple appearing thin-walled cyst in the right kidney. Multiple thin-walled cysts throu ghout the left kidney including a dominant 11.5 cm cyst are redemonstrated. Evaluation is suboptimal due to number and size of lesions. No significant change from most recent prior ultrasound. No follow -up necessary. No hydronephrosis seen bilaterally. The urinary bladder is not greatly distended and i s thus suboptimally evaluated. IMPRESSION: No hydronephrosis is identified bilaterally. [facility], , 01/31/2025 2:20 PM
== END | disposition home or self-care (01) ==
LOC: RADUSWWP 13:52
PROVIDERS: ATTEND Internal Medicine Nephrology
DX: N18.2 Chronic kidney disease, stage 2 (mild) (principal)
CPT/HCPCS: 76770

== ENCOUNTER → 2025-04-04 | Outpatient (CLI) | payer MEDICARE, BC ==
--- NOTE | 2025-04-05 00:20 | XR ---
EXAMINATION TYPE: XR Hip Bilateral and AP pelvis DATE OF EXAM: 04/04/2025 9:07 AM COMPARISON: None. CLINICAL INDICATION: Male, 69 years old with history of M25.551 bilateral hip pain, pain TECHNIQUE: 2 view(s) obtained bilateral hips and supplemented with an AP pelvis. FINDINGS: Femoral heads articulate with the acetabulum. Joint space narrowing is present. Symphysis pubis and s acroiliac joints are patent. Normal bowel gas is present. No acute fractures or dislocations evident. IMPRESSION: 1. Moderate bilateral hip degenerative joint changes [facility], , 04/05/2025 12:17 AM
--- NOTE | 2025-04-05 10:31 | XR ---
EXAMINATION TYPE: XR chest 2V DATE OF EXAM: 04/05/2025 10:26 AM COMPARISON: 11/02/2028 CLINICAL INDICATION: Male, 69 years old with history of R06.09 dyspnea, TECHNIQUE: XR chest 2V view(s) obtained. FINDINGS: The heart size is normal. The pulmonary vasculature is normal. There is a stable nodule left lung base. Lung melara otherwise appear clear. IMPRESSION: 1. No acute pulmonary process. 2. Lung nodule left lung base present previously [facility], , 04/05/2025 10:29 AM
== END | disposition home or self-care (01) ==
LOC: RADXRMAIN 08:42
PROVIDERS: ATTEND Internal Medicine
DX: M16.0 Bilateral primary osteoarthritis of hip (principal); R91.1 Solitary pulmonary nodule
CPT/HCPCS: 71046; 73521